=== PATIENT | female | born 1965 | race Caucasian/White ===

== ENCOUNTER 2016-05-19 13:11 | Inpatient (IN) | payer OTHER ==
[2016-05-19 14:29] VITALS: BMI 36.8
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
[2016-05-19] MEDS ORDERED: MAGNESIUM HYDROX 2400MG/30ML ORAL SUSPENSION 30 ML CUP PO PRN (16:35)
[2016-05-19] MEDS ORDERED: LOPERAMIDE HCL 2 MG CAPSULE PO PRN (16:35)
[2016-05-19] MEDS ORDERED: diazePAM 5 MG TABLET PO ONE (16:35)
[2016-05-19] MEDS ORDERED: P-EPHED 60MG/TRIPROLIDI 2.5MG TABLET PO PRN (16:35)
[2016-05-19] MEDS ORDERED: NICOTINE POLACRILEX 2 MG GUM BUC PRN (16:35)
[2016-05-19] MEDS ORDERED: MENTHOL/PHENOL 1 EACH UD MM PRN (16:35)
[2016-05-19] MEDS ORDERED: diazePAM 5 MG TABLET PO PRN (16:35)
[2016-05-19] MEDS ORDERED: IBUPROFEN 400 MG TABLET (FP) PO PRN (16:35)
[2016-05-19] MEDS ORDERED: MAG HYDROX/AL HYDROX/SIMETH 30 ML UNIT-DOSE CUP PO PRN (16:35)
[2016-05-19] MEDS ORDERED: ACETAMINOPHEN 325 MG TABLET (FP) PO PRN (16:35)
[2016-05-19] MEDS ORDERED: guaiFENesin/D-METHORPHAN HB 10 ML UNIT-DOSE CUPS PO PRN (16:35)
[2016-05-19] MEDS ORDERED: MAGNESIUM CITRATE 300 ML BOTTLE PO PRN (16:35)
[2016-05-19] MEDS ORDERED: ALBUTEROL SO4 6.7 GM HFA INHALER IH PRN (16:38)
[2016-05-19] MEDS ORDERED: chlordiazePOXIDE HCL 25 MG CAPSULE PO ONE (17:45)
[2016-05-19] MEDS ORDERED: diazePAM 5 MG TABLET PO SCH (22:00)
[2016-05-19] MEDS: THIAMINE HCL 100 MG TABLET (FP) PO SCH (22:18)
[2016-05-19] MEDS: chlordiazePOXIDE HCL 25 MG CAPSULE PO SCH (22:18)
[2016-05-19] MEDS: diphenhydrAMINE HCL 50 MG CAPSULE PO PRN (22:18)
[2016-05-20] MEDS: chlordiazePOXIDE HCL 25 MG CAPSULE PO PRN ×2 (01:49→12:55)
[2016-05-20] MEDS: chlordiazePOXIDE HCL 25 MG CAPSULE PO SCH ×4 (05:36→22:30)
[2016-05-20] MEDS ORDERED: METHADONE HCL 10 MG TABLET PO ONE (09:08)
[2016-05-20] MEDS ORDERED: METHADONE 40 MG, METHADONE 30 MG PO ONE (09:15)
--- NOTE | 2016-05-20 09:25 | CONSULT ---
[facility] Psychiatric Consult - Data Date of interview: 05/20/16 Admission source: [facility] Identifying data: This is 51 years old female with no psychiatric hospitalization history, history of Bipolar disorder, intoxicated with: Alcohol, Cannabis, Opioids, Nicotine Substance Abuse History: - Smoking Cessation. Smoking history: Current every day smoker. Have you smoked in the past 12 months: Yes. Aproximately how many cigarettes per day: 3. Cigars Per Day: 0. Hx Chewing Tobacco Use: No. Initiated information on smoking cessation: Yes. 'Breaking Loose' booklet given : 05/19/16. - Substance & Tx. History. Hx Alcohol Use: Yes. Hx Substance Use : No. Substance Use Type: Alcohol, Cocaine, Opiates, Tranquilizers. Hx Substance Use Treatment: Yes. - Substances Abused. Alcohol. Route: Oral. Frequency: Daily. Amount used: Vodka 1 pint of a 5th a day. Age of first use: 32. Date of Last Use: 05/18/16. Heroin. Route: Injection. Frequency: Daily. Amount used: $ 200. Age of first use: 18. Date of Last Use: 05/19/16. Alprazolam (Xanax). Route: Oral. Frequency: Daily. Amount used: 4 mg. Age of first use: 31. Date of Last Use: 05/18/16 Medical History: Obesity, MMTP, Arthritis, LBP, GERD , Seizure history, Syncope history Psychiatric History: Patient reports history of Bipolar disorder, reports taking prior to admission : Seroquel 50mg po bid. Ambien 10mg po qhs Physical/Sexual Abuse/Trauma History: Denies Additional Comment: Seroquel 50mg po bid. Ambien 10mg po qhs Mental Status Exam - Mental Status Exam Alert and Oriented to: Person Cognitive Function: Fair Patient Appearance: Unkempt Mood: Sad Affect: Flat Patient Behavior: Sedated Speech Pattern: Delayed Voice Loudness: Mildly Soft/Quiet Thought Process: Circumstantial Thought Disorder: Being Controlled Hallucinations: Denies Suicidal Ideation: Denies Homicidal Ideation: Denies Insight/Judgement: Fair Sleep: Difficulty falling asleep Appetite: Weight gain Muscle strength/Tone: Mild Hypotonicity Gait/Station: Shuffling Additional Comments: Seroquel 50mg po bid. Ambien 10mg po qhs Psychiatric Findings - Problem List ([place] 1, 2,3) (1) mmtp Current Visit: Yes Status: Active Comment: 80 mg verification pending (2) Alcohol dependence with uncomplicated withdrawal Current Visit: Yes Status: Acute (3) Bipolar disorder Current Visit: Yes Status: Suspected Comment: seroquel (4) Alcohol dependence Current Visit: No Status: Active (5) Cannabis dependence Current Visit: No Status: Acute (6) Nicotine dependence Current Visit: No Status: Acute (7) Opioid dependence on agonist therapy Current Visit: No Status: Acute - Initial Treatment Plan Initial Treatment Plan: Seroquel 50mg po bid. Ambien 10mg po qhs
[2016-05-20 10:08] LABS: MCH 29.3 pg (25.7-33.7); MCHC 32.7 g/dl (32.0-36.0); MEAN CELL VOLUME 89.5 fl (80-96); MEAN PLT VOLUME 12.2 fl (7.5-11.1); PLATELET COUNT 145 K/MM3 (134-434); RDW 13.8 % (11.6-15.6); WHITE BLOOD COUNT 7.7 K/mm3 (4.0-10.0)
[2016-05-20] MEDS: PRENATAL VITAMINS W/ FOLIC ACID TABLET (FP) PO SCH (10:11)
[2016-05-20] MEDS ORDERED: METHADONE HCL 10 MG TABLET ONE (10:12)
[2016-05-20] MEDS ORDERED: METHADONE HCL 40 MG DISPERSABLE TABLET ONE (10:12)
[2016-05-20] MEDS: QUEtiapine FUMARATE 50 MG TABLET PO SCH ×2 (10:13→22:32)
[2016-05-20] MEDS: NICOTINE 14 MG/24 HOURS TOPICAL PATCH TD SCH (10:16)
[2016-05-20 10:17] LABS: PH,URINE 5.5 (5.0-8.0); URINE APPEARANCE CLEAR; URINE BILIRUBIN NEGATIVE (NEGATIVE); URINE BLOOD NEGATIVE (NEGATIVE); URINE COLOR LT. YELLOW; URINE GLUCOSE (UA) NEGATIVE (NEGATIVE); URINE KETONE NEGATIVE (NEGATIVE); URINE LEUK ESTERASE NEGATIVE (NEGATIVE); URINE NITRITE NEGATIVE (NEGATIVE); URINE PROTEIN NEGATIVE (NEGATIVE); URINE UROBILINOGEN 0.2 E.U/dl E.U./dl (0.2-1.0)
[2016-05-20 10:19] LABS: ALBUMIN 3.8 g/dl (3.4-5.0); BILIRUBIN,TOTAL 0.4 mg/dL (0.2-1.0); CALCIUM 9.2 mg/dL (8.5-10.1); CREATININE 1.3 mg/dL (0.55-1.02); TOT PROT 8.2 g/dl (6.4-8.2)
--- NOTE | 2016-05-20 10:20 | EKG ---
Test Reason : Blood Pressure : / mmHG Vent. Rate : 063 BPM Atrial Rate : 063 BPM P-R Int : 146 ms QRS Dur : 084 ms QT Int : 458 ms P-R-T Axes : 047 048 034 degrees QTc Int : 468 ms NORMAL SINUS RHYTHM NORMAL ECG NO PREVIOUS ECGS AVAILABLE Confirmed by BRIAN JACQUES, JAYLYN ([id number]) on 05/20/2016 10:19:59 AM Referred By: Confirmed By:JAYLYN TORRES MD
--- NOTE | 2016-05-20 12:11 | PN ---
[facility] CIWA - CIWA Score Nausea/Vomitin Muscle Tremors: 2 Anxiety: 3 Agitation: 3 Paroxysmal Sweats: 3 Orientation: 0-Oriented Tacttile Disturbances: 2-Mild Itch/Numbness/Burn Auditory Disturbances: 0-None Visual Disturbances: 0-None Headache: 0-None Present CIWA-Ar Total Score: 15 [facility] Progress Note (SOAP) Subjective: interrupted sleep, sweats, leg cramps Objective: 05/20/16 12:07 Vital Signs Temperature 97.9 F 05/20/16 10:20 Pulse Rate 75 05/20/16 10:20 Respiratory Rate 18 05/20/16 10:20 Blood Pressure 106/62 05/20/16 10:20 O2 Sat by Pulse Oximetry (%) Laboratory Tests 05/20/16 05/20/16 05/20/16 06:00 06:00 06:00 WBC 7.7 RBC 4.48 Hgb 13.1 Hct 40.1 MCV 89.5 MCHC 32.7 RDW 13.8 Plt Count 145 MPV 12.2 H D Sodium 141 Potassium 4.2 Chloride 103 Carbon Dioxide 31 Anion Gap 7 L BUN 11 D Creatinine 1.3 H D Creat Clearance w eGFR 43.01 Random Glucose 89 Calcium 9.2 Total Bilirubin 0.4 D AST 63 H D ALT 73 D Alkaline Phosphatase 105 D Total Protein 8.2 Albumin 3.8 Urine Color Urine Appearance Urine pH Ur Specific [place] Urine Protein Urine Glucose (UA) Urine Ketones Urine Blood Urine Nitrite Urine Bilirubin Urine Urobilinogen Ur Leukocyte Esterase RPR Titer Nonreactive 05/20/16 07:50 WBC RBC Hgb Hct MCV MCHC RDW Plt Count MPV Sodium Potassium Chloride Carbon Dioxide Anion Gap BUN Creatinine Creat Clearance w eGFR Random Glucose Calcium Total Bilirubin AST ALT Alkaline Phosphatase Total Protein Albumin Urine Color Lt. yellow Urine Appearance Clear Urine pH 5.5 D Ur Specific [place] >= 1.030 Urine Protein Negative Urine Glucose (UA) Negative Urine Ketones Negative Urine Blood Negative Urine Nitrite Negative Urine Bilirubin Negative Urine Urobilinogen 0.2 e.u/dl Ur Leukocyte Esterase Negative RPR Titer pt aox3 irritable Assessment: 05/20/16 12:09 withdrawl sx',s Plan: cont. detox increase fluids flexeril 10mg tid/prn
[2016-05-20] MEDS: CYCLOBENZAPRINE HCL 10 MG TABLET (FP) PO PRN ×2 (12:55→22:32)
[2016-05-20 14:24] LABS: HIV 1 & 2 AB NEGATIVE; HIV 1 AGp24 NEGATIVE
[2016-05-20] MEDS: THIAMINE HCL 100 MG TABLET (FP) PO SCH (22:30)
[2016-05-20] MEDS: ZOLPIDEM TARTRATE 10 MG TABLET (PARK CARE ONLY) PO PRN (22:32)
[2016-05-20] MEDS: diphenhydrAMINE HCL 50 MG CAPSULE PO PRN (22:32)
[2016-05-21] MEDS: chlordiazePOXIDE HCL 25 MG CAPSULE PO PRN ×2 (02:14→12:38)
[2016-05-21] MEDS: diphenhydrAMINE HCL 50 MG CAPSULE PO PRN (02:15)
[2016-05-21] MEDS: CYCLOBENZAPRINE HCL 10 MG TABLET (FP) PO PRN ×2 (02:16→10:35)
[2016-05-21] MEDS ORDERED: METHADONE HCL 10 MG TABLET ONE (05:16)
[2016-05-21] MEDS ORDERED: METHADONE HCL 40 MG DISPERSABLE TABLET ONE (05:17)
[2016-05-21] MEDS: chlordiazePOXIDE HCL 25 MG CAPSULE PO SCH ×3 (05:49→17:26)
[2016-05-21] MEDS: METHADONE 40 MG, METHADONE 30 MG PO SCH (05:49)
[2016-05-21] MEDS ORDERED: METHADONE HCL 40 MG DISPERSABLE TABLET PO SCH (06:00)
--- NOTE | 2016-05-21 09:22 | PN ---
Psychiatric Progress Note Vital Signs: Vital Signs Period Temp Pulse Resp BP Sys/Ruelas Pulse Ox Last 24 Hr 97.0 F-98.2 F 62-75 16-20 89-106/56-63 Date of Session: 05/21/16 Chief Complaint:: Seroquel dose HPI: Patient reprots she was taking Seroquel 100mg po bid prior to admission Current Medications: Active Medications Generic Name Dose Route Start Last Admin Trade Name Freq PRN Reason Stop Dose Admin Acetaminophen 650 mg 05/19/16 16:35 Tylenol - PO Q4H PRN FEVER OR PAIN Al Hydroxide/Mg Hydroxide 30 ml 05/19/16 16:35 Mylanta Oral Suspension - PO Q6H PRN DYSPEPSIA Albuterol Sulfate 0 puff 05/19/16 16:38 Ventolin Hfa Inhaler - IH Q4H PRN SHORT OF BREATH/WHEEZING Chlordiazepoxide HCl 10 mg 05/22/16 23:00 Librium - PO 05/23/16 17:01 [id number] SHERITA Chlordiazepoxide HCl 25 mg 05/19/16 16:44 05/21/16 02:14 Librium - PO 05/22/16 16:43 25 mg Q4H PRN Administration WITHDRAWAL(CONT SUBST) Chlordiazepoxide HCl 25 mg 05/20/16 23:00 05/21/16 05:49 Librium - PO 05/21/16 17:01 25 mg [id number] SHERITA Administration Chlordiazepoxide HCl 15 mg 05/21/16 23:00 Librium - PO 05/22/16 17:01 [id number] SHERITA Cyclobenzaprine HCl 10 mg 05/20/16 12:06 05/21/16 02:16 Flexeril - PO 10 mg TID PRN Administration MUSCLE SPASMS Diphenhydramine HCl 50 mg 05/19/16 22:00 05/21/16 02:15 Benadryl - PO 50 mg HSMR1 PRN Administration INSOMNIA Eucalyptus/Menthol/Phenol/Sorbitol 1 each 05/19/16 16:35 Cepastat Lozenge - MM Q4H PRN SORE THROAT Guaifenesin 10 ml 05/19/16 16:35 Robitussin Dm - PO Q6H PRN COUGH Ibuprofen 400 mg 05/19/16 16:35 Motrin - PO Q6H PRN SEVERE PAIN Loperamide HCl 4 mg 05/19/16 16:35 Imodium - PO Q6H PRN DIARRHEA Magnesium Citrate 300 ml 05/19/16 16:35 Citroma - PO Q48H PRN CONSTIPATION Magnesium Hydroxide 30 ml 05/19/16 16:35 Milk Of Magnesia - PO DAILY PRN CONSTIPATION Methadone HCl 40 mg/ Methadone 70 mg 05/21/16 06:00 05/21/16 05:49 HCl 30 mg PO 05/27/16 05:59 70 mg DAILY@0600 SHERITA Administration Nicotine 14 mg 05/20/16 10:00 05/20/16 10:16 Nicoderm Patch - TD Not Given DAILY SHERITA Nicotine Polacrilex 2 mg 05/19/16 16:35 Nicorette Gum - BUC Q2H PRN NICOTINE REPLACEMENT RX Multivit/Folic Acid/Iron 1 tab 05/20/16 10:00 05/20/16 10:11 Vitamins (Sjr) - PO 1 tab DAILY SHERITA Administration Pseudoephedrine/Triprolidine 1 combo 05/19/16 16:35 Actifed - PO TID PRN NASAL CONGESTION Quetiapine Fumarate 100 mg 05/21/16 09:20 Seroquel - PO BID SHERITA Thiamine HCl 100 mg 05/19/16 22:00 05/20/16 22:30 Vitamin B1 - PO 100 mg HS SHERITA Administration Zolpidem Tartrate 10 mg 05/20/16 22:00 05/20/16 22:32 Ambien - PO 05/23/16 21:59 10 mg HS PRN Administration INSOMNIA Medication(s) Change(s): Seroquel 100mg po bid Mental Status Exam - Mental Status Exam Alert and Oriented to: Person Cognitive Function: Fair Patient Appearance: Unkempt Mood: Anxious Affect: Labile Patient Behavior: Cooperative Speech Pattern: Pressured Voice Loudness: Mildly Loud Thought Process: Goal Oriented Thought Disorder: Being Controlled Hallucinations: Denies Suicidal Ideation: Denies Homicidal Ideation: Denies Insight/Judgement: Fair Sleep: Difficulty falling asleep Appetite: Weight gain Muscle strength/Tone: Normal Gait/Station: Normal Additional Comments: Seroquel 100mg po bid Psychiatric Treatment Plan - Problem List (1) mmtp Current Visit: Yes Comment: 80 mg verification pending (2) Alcohol dependence with uncomplicated withdrawal Current Visit: Yes (3) Bipolar disorder Current Visit: Yes Comment: seroquel (4) Alcohol dependence Current Visit: No (5) Cannabis dependence Current Visit: No (6) Nicotine dependence Current Visit: No (7) Opioid dependence on agonist therapy Current Visit: No Initial treatment plan: Seroquel 100mg po bid
--- NOTE | 2016-05-21 09:35 | PN ---
[facility] CIWA - CIWA Score Nausea/Vomitin-No Nausea/No Vomiting Muscle Tremors: 4-Moderate,w/Arms Extend Anxiety: 3 Agitation: 4-Moderately Restless Paroxysmal Sweats: 2 Orientation: 0-Oriented Tacttile Disturbances: 0-None Auditory Disturbances: 0-None Visual Disturbances: 0-None Headache: 0-None Present CIWA-Ar Total Score: 13 [facility] Progress Note (SOAP) Subjective: anxious sweats mild shakes interrupted sleep "my blood pressure has always run low" Objective: 05/21/16 09:33 Vital Signs Temperature 97.0 F L 05/21/16 05:55 Pulse Rate 62 05/21/16 05:55 Respiratory Rate 20 05/21/16 05:55 Blood Pressure 96/60 05/21/16 05:55 O2 Sat by Pulse Oximetry (%) Laboratory Tests 05/20/16 05/20/16 05/20/16 06:00 06:00 06:00 WBC 7.7 RBC 4.48 Hgb 13.1 Hct 40.1 MCV 89.5 MCHC 32.7 RDW 13.8 Plt Count 145 MPV 12.2 H D Sodium 141 Potassium 4.2 Chloride 103 Carbon Dioxide 31 Anion Gap 7 L BUN 11 D Creatinine 1.3 H D Creat Clearance w eGFR 43.01 Random Glucose 89 Calcium 9.2 Total Bilirubin 0.4 D AST 63 H D ALT 73 D Alkaline Phosphatase 105 D Total Protein 8.2 Albumin 3.8 Urine Color Urine Appearance Urine pH Ur Specific [place] Urine Protein Urine Glucose (UA) Urine Ketones Urine Blood Urine Nitrite Urine Bilirubin Urine Urobilinogen Ur Leukocyte Esterase RPR Titer Nonreactive HIV 1&2 Antibody Screen HIV P24 Antigen 05/20/16 05/20/16 07:50 11:55 WBC RBC Hgb Hct MCV MCHC RDW Plt Count MPV Sodium Potassium Chloride Carbon Dioxide Anion Gap BUN Creatinine Creat Clearance w eGFR Random Glucose Calcium Total Bilirubin AST ALT Alkaline Phosphatase Total Protein Albumin Urine Color Lt. yellow Urine Appearance Clear Urine pH 5.5 D Ur Specific [place] >= 1.030 Urine Protein Negative Urine Glucose (UA) Negative Urine Ketones Negative Urine Blood Negative Urine Nitrite Negative Urine Bilirubin Negative Urine Urobilinogen 0.2 e.u/dl Ur Leukocyte Esterase Negative RPR Titer HIV 1&2 Antibody Screen Negative HIV P24 Antigen Negative awake/alert ambulating no acute distress encouraged to drink fluids Assessment: 05/21/16 09:34 withdrawal sx Plan: continue detox increase fluids repeat BP and monitor.
[2016-05-21] MEDS ORDERED: diazePAM 5 MG TABLET PO SCH (10:00)
[2016-05-21] MEDS: PRENATAL VITAMINS W/ FOLIC ACID TABLET (FP) PO SCH (10:10)
[2016-05-21] MEDS: QUEtiapine FUMARATE 100 MG TABLET (FP) PO SCH ×2 (10:11→22:12)
[2016-05-21] MEDS: NICOTINE 14 MG/24 HOURS TOPICAL PATCH TD SCH (10:12)
[2016-05-21] MEDS ORDERED: QUEtiapine FUMARATE 100 MG TABLET (FP) PO SCH (22:00)
[2016-05-21] MEDS: THIAMINE HCL 100 MG TABLET (FP) PO SCH (22:12)
[2016-05-21] MEDS: ZOLPIDEM TARTRATE 10 MG TABLET (PARK CARE ONLY) PO PRN (22:13)
[2016-05-21] MEDS: chlordiazePOXIDE 5 MG CAPSULE PO SCH (22:13)
[2016-05-22] MEDS: chlordiazePOXIDE HCL 25 MG CAPSULE PO PRN ×2 (02:09→12:18)
[2016-05-22] MEDS: diphenhydrAMINE HCL 50 MG CAPSULE PO PRN (02:09)
[2016-05-22] MEDS ORDERED: METHADONE HCL 10 MG TABLET ONE (04:52)
[2016-05-22] MEDS ORDERED: METHADONE HCL 40 MG DISPERSABLE TABLET ONE (04:53)
[2016-05-22] MEDS: chlordiazePOXIDE 5 MG CAPSULE PO SCH ×2 (05:58→10:08)
[2016-05-22] MEDS: METHADONE 40 MG, METHADONE 30 MG PO SCH (05:59)
[2016-05-22] MEDS: CYCLOBENZAPRINE HCL 10 MG TABLET (FP) PO PRN (06:01)
--- NOTE | 2016-05-22 09:47 | PN ---
[facility] Progress Note (SOAP) Subjective: co shakiness, poor sleep, anxiety Objective: 05/22/16 09:44 Laboratory Tests 05/20/16 05/20/16 05/20/16 06:00 06:00 06:00 WBC 7.7 RBC 4.48 Hgb 13.1 Hct 40.1 MCV 89.5 MCHC 32.7 RDW 13.8 Plt Count 145 MPV 12.2 H D Sodium 141 Potassium 4.2 Chloride 103 Carbon Dioxide 31 Anion Gap 7 L BUN 11 D Creatinine 1.3 H D Creat Clearance w eGFR 43.01 Random Glucose 89 Calcium 9.2 Total Bilirubin 0.4 D AST 63 H D ALT 73 D Alkaline Phosphatase 105 D Total Protein 8.2 Albumin 3.8 Urine Color Urine Appearance Urine pH Ur Specific [place] Urine Protein Urine Glucose (UA) Urine Ketones Urine Blood Urine Nitrite Urine Bilirubin Urine Urobilinogen Ur Leukocyte Esterase RPR Titer Nonreactive HIV 1&2 Antibody Screen HIV P24 Antigen 05/20/16 05/20/16 07:50 11:55 WBC RBC Hgb Hct MCV MCHC RDW Plt Count MPV Sodium Potassium Chloride Carbon Dioxide Anion Gap BUN Creatinine Creat Clearance w eGFR Random Glucose Calcium Total Bilirubin AST ALT Alkaline Phosphatase Total Protein Albumin Urine Color Lt. yellow Urine Appearance Clear Urine pH 5.5 D Ur Specific [place] >= 1.030 Urine Protein Negative Urine Glucose (UA) Negative Urine Ketones Negative Urine Blood Negative Urine Nitrite Negative Urine Bilirubin Negative Urine Urobilinogen 0.2 e.u/dl Ur Leukocyte Esterase Negative RPR Titer HIV 1&2 Antibody Screen Negative HIV P24 Antigen Negative Vital Signs - 24 hr 05/21/16 05/21/16 05/21/16 10:36 14:28 17:57 Temperature 97 F L 98.5 F 97.9 F Pulse Rate 80 95 H 70 Respiratory 16 20 18 Rate Blood Pressure 90/58 98/74 109/52 05/21/16 05/22/16 05/22/16 22:40 00:30 03:30 Temperature 97.5 F L Pulse Rate 81 Respiratory 19 18 18 Rate Blood Pressure 109/66 05/22/16 06:29 Temperature 97.2 F L Pulse Rate 63 Respiratory 16 Rate Blood Pressure 100/60 Assessment: 05/22/16 09:44 ongoing withdrawal Plan: continue detox protocol dc in am
[2016-05-22] MEDS: QUEtiapine FUMARATE 100 MG TABLET (FP) PO SCH (10:08)
[2016-05-22] MEDS: PRENATAL VITAMINS W/ FOLIC ACID TABLET (FP) PO SCH (10:08)
[2016-05-22] MEDS: NICOTINE 14 MG/24 HOURS TOPICAL PATCH TD SCH (10:08)
[2016-05-22 10:16] VITALS: PULSE 84
[2016-05-22 14:00] VITALS: BP 93/55; TEMP 97.7
[2016-05-22] MEDS ORDERED: chlordiazePOXIDE HCL 10 MG CAPSULE PO SCH (23:00)
[2016-05-23] MEDS ORDERED: diazePAM 5 MG TABLET PO SCH (10:00)
== END 2016-05-22 14:45 | disposition left against medical advice (07) | DRG 770 ==
LOC: YASAS 13:11 → Y6N 16:22
PROVIDERS: ADMIT Internal Medicine Addiction Medicine; ATTEND Internal Medicine Addiction Medicine
PROC: HZ2ZZZZ Detoxification Services for Substance Abuse Treatment (ICD-10-PCS; principal; 2016-05-19)
DX: F10.230 Alcohol dependence with withdrawal, uncomplicated (principal); F11.20 Opioid dependence, uncomplicated; F13.20 Sedative, hypnotic or anxiolytic dependence, uncomplicated; F12.20 Cannabis dependence, uncomplicated; F17.210 Nicotine dependence, cigarettes, uncomplicated; F31.9 Bipolar disorder, unspecified; B18.2 Chronic viral hepatitis C; E66.9 Obesity, unspecified; Z68.36 Body mass index [BMI] 36.0-36.9, adult; K21.9 Gastro-esophageal reflux disease without esophagitis; M12.9 Arthropathy, unspecified; M54.5 Low back pain; J45.909 Unspecified asthma, uncomplicated; Z86.69 Personal history of other diseases of the nervous system and sense organs; Z86.79 Personal history of other diseases of the circulatory system; Z86.2 Personal history of diseases of the blood and blood-forming organs and certain disorders involving the immune mechanism
CPT/HCPCS: 36415; 80053; 81003; 85027; 86593; 87389; 93005; 93010

== ENCOUNTER 2016-12-30 15:13 | Inpatient (IN) | payer OTHER ==
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
[2016-12-30 18:00] VITALS: BMI 35.4
[2016-12-30] MEDS ORDERED: MAGNESIUM HYDROX 2400MG/30ML ORAL SUSPENSION 30 ML CUP PO PRN (18:03)
[2016-12-30] MEDS ORDERED: MAG HYDROX/AL HYDROX/SIMETH 30 ML UNIT-DOSE CUP PO PRN (18:03)
[2016-12-30] MEDS ORDERED: MENTHOL/PHENOL 1 EACH UD MM PRN (18:03)
[2016-12-30] MEDS ORDERED: guaiFENesin/D-METHORPHAN HB 10 ML UNIT-DOSE CUPS PO PRN (18:03)
[2016-12-30] MEDS ORDERED: LOPERAMIDE HCL 2 MG CAPSULE PO PRN (18:03)
[2016-12-30] MEDS ORDERED: P-EPHED 60MG/TRIPROLIDI 2.5MG TABLET PO PRN (18:03)
[2016-12-30] MEDS ORDERED: diphenhydrAMINE HCL 50 MG CAPSULE PO PRN (18:03)
[2016-12-30] MEDS ORDERED: ACETAMINOPHEN 325 MG TABLET (FP) PO PRN (18:03)
[2016-12-30] MEDS ORDERED: MAGNESIUM CITRATE 300 ML BOTTLE PO PRN (18:03)
[2016-12-30] MEDS ORDERED: chlordiazePOXIDE HCL 25 MG CAPSULE PO ONE (18:03)
[2016-12-30] MEDS ORDERED: IBUPROFEN 400 MG TABLET (FP) PO PRN (18:03)
[2016-12-30] MEDS ORDERED: ALBUTEROL SO4 6.7 GM HFA INHALER IH PRN (18:05)
[2016-12-30] MEDS: THIAMINE HCL 100 MG TABLET (FP) PO SCH (22:06)
[2016-12-30] MEDS: chlordiazePOXIDE HCL 25 MG CAPSULE PO SCH (22:06)
[2016-12-30 22:10] LABS: URINE APPEARANCE SLCLOUDY; URINE BILIRUBIN NEGATIVE (NEGATIVE); URINE BLOOD NEGATIVE (NEGATIVE); URINE COLOR AMBER; URINE GLUCOSE (UA) NEGATIVE (NEGATIVE); URINE KETONE NEGATIVE (NEGATIVE); URINE LEUK ESTERASE TRACE (NEGATIVE); URINE NITRITE NEGATIVE (NEGATIVE)
[2016-12-30 22:15] LABS: URINE PROTEIN 1+ (NEGATIVE)
[2016-12-30 22:18] LABS: URINE HYALINE CAST 12 /lpf; URINE MUCUS MANY; URINE WBC 4 /hpf (3-5)
[2016-12-31] MEDS: chlordiazePOXIDE HCL 25 MG CAPSULE PO SCH ×4 (06:39→22:03)
--- NOTE | 2016-12-31 09:05 | CONSULT ---
[facility] Psychiatric Consult - Data Date of interview: 12/31/16 Admission source: [facility] Identifying data: This is 51 years old obese female with Bipolar disorder history, no psychiatric hospitalization history intoxicated with: Alcohol, Cannabis, Opioids and Nicotine Substance Abuse History: - Smoking Cessation. Smoking history: Former smoker. Have you smoked in the past 12 months: No. Aproximately how many cigarettes per day: 0. Cigars Per Day: 0. Hx Chewing Tobacco Use: No. Initiated information on smoking cessation: No. - Substance & Tx. History. Hx Alcohol Use: Yes. Hx Substance Use: Yes. Substance Use Type: Alcohol, Cocaine, Marijuana, Tranquilizers. Hx Substance Use Treatment: Yes (05/19-05/22/16 [facility]). - Substances Abused. Alcohol. Route: Oral. Frequency: Daily. Amount used: fifth volka. Age of first use: 25. Date of Last Use: 12/29/16. * * Alprazolam (Xanax). Route: Oral. Frequency: Daily. Amount used: 8 mg. Age of first use: 29. Date of Last Use: 12/29/16 Medical History: Asthma, Obesity, HepC+, Seizure history, Syncope history, MMTP 80mg per day Psychiatric History: Patient reports history of Bipolar Disorder, PTSD, reports taking prior to admission: Seroquel 100mg po bid. Ambien 10mg po qhs Physical/Sexual Abuse/Trauma History: Denies Additional Comment: Seroquel 100mg po bid. Ambien 10mg po qhs Mental Status Exam - Mental Status Exam Alert and Oriented to: Person Cognitive Function: Fair Patient Appearance: Unkempt Mood: Sad Affect: Flat Patient Behavior: Cooperative Speech Pattern: Appropriate Voice Loudness: Mildly Soft/Quiet Thought Process: Circumstantial Thought Disorder: Being Controlled Hallucinations: Denies Suicidal Ideation: Denies Homicidal Ideation: Denies Insight/Judgement: Fair Sleep: Difficulty falling asleep Appetite: Weight gain Muscle strength/Tone: Mild Hypotonicity Gait/Station: Shuffling Additional Comments: Seroquel 100mg po bid. Ambien 10mg po qhs Psychiatric Findings - Problem List ([place] 1, 2,3) (1) Alcohol dependence with uncomplicated withdrawal Current Visit: Yes Status: Acute (2) Cannabis dependence, uncomplicated Current Visit: Yes Status: Chronic (3) Cocaine dependence, uncomplicated Current Visit: Yes Status: Chronic (4) Methadone maintenance therapy patient Current Visit: Yes Status: Chronic Comment: 80 mg verification pending (5) Alcohol dependence Current Visit: No Status: Active (6) mmtp Current Visit: No Status: Active Comment: 80 mg verification pending (7) Cannabis dependence Current Visit: No Status: Acute (8) Nicotine dependence Current Visit: No Status: Acute (9) Bipolar disorder Current Visit: No Status: Suspected Comment: seroquel - Initial Treatment Plan Initial Treatment Plan: Seroquel 100mg po bid. Ambien 10mg po qhs
[2016-12-31] MEDS: METHADONE HCL 40 MG DISPERSABLE TABLET PO SCH (09:08)
[2016-12-31] MEDS ORDERED: ONDANSETRON *ODT* 4 MG TABLET SL PRN (09:13)
[2016-12-31 10:08] LABS: MCH 29.2 pg (25.7-33.7); MCHC 32.7 g/dl (32.0-36.0); MEAN CELL VOLUME 89.4 fl (80-96); MEAN PLT VOLUME 10.7 fl (7.5-11.1); PLATELET COUNT 141 K/MM3 (134-434); RDW 14.3 % (11.6-15.6); WHITE BLOOD COUNT 7.4 K/mm3 (4.0-10.0)
[2016-12-31] MEDS: PRENATAL VITAMINS W/ FOLIC ACID TABLET (FP) PO SCH (10:26)
[2016-12-31] MEDS: QUEtiapine FUMARATE 100 MG TABLET (FP) PO SCH ×2 (10:26→22:03)
[2016-12-31] MEDS: CYCLOBENZAPRINE HCL 10 MG TABLET (FP) PO PRN ×2 (10:26→22:03)
[2016-12-31 10:29] LABS: ALBUMIN 3.3 g/dl (3.4-5.0); ALK PHOS 100 U/L (45-117); ANION GAP 7 (8-16); BILIRUBIN,TOTAL 0.5 mg/dL (0.2-1.0); CALCIUM 8.7 mg/dL (8.5-10.1); CO2 31 mmol/L (21-32); CREATININE 1.3 mg/dL (0.55-1.02); SGOT/AST 36 U/L (15-37); SGPT/ALT 49 U/L (12-78); TOT PROT 7.3 g/dl (6.4-8.2)
--- NOTE | 2016-12-31 11:14 | PN ---
[facility] CIWA - CIWA Score Nausea/Vomitin-No Nausea/No Vomiting Muscle Tremors: 4-Moderate,w/Arms Extend Anxiety: 3 Agitation: 3 Paroxysmal Sweats: 3 Orientation: 0-Oriented Tacttile Disturbances: 0-None Auditory Disturbances: 0-None Visual Disturbances: 0-None Headache: 0-None Present CIWA-Ar Total Score: 13 S Progress Note (SOAP) Subjective: chronic knee pain nausea sweats agitation Objective: 12/31/16 11:14 Vital Signs Temperature 97.9 F 12/31/16 09:57 Pulse Rate 71 12/31/16 09:57 Respiratory Rate 18 12/31/16 09:57 Blood Pressure 100/46 12/31/16 09:57 O2 Sat by Pulse Oximetry (%) Laboratory Tests 12/30/16 12/31/16 12/31/16 21:45 07:00 07:00 WBC 7.4 RBC 4.21 Hgb 12.3 Hct 37.7 MCV 89.4 MCH 29.2 MCHC 32.7 RDW 14.3 Plt Count 141 MPV 10.7 D Sodium 140 Potassium 4.1 Chloride 102 Carbon Dioxide 31 Anion Gap 7 L BUN 16 D Creatinine 1.3 H Creat Clearance w eGFR 43.01 Calcium 8.7 Total Bilirubin 0.5 D AST 36 D ALT 49 D Alkaline Phosphatase 100 Total Protein 7.3 Albumin 3.3 L Urine Color [place] Urine Appearance Slcloudy Urine pH 5.0 Urine Protein 1+ H Urine Glucose (UA) Negative Urine Ketones Negative Urine Blood Negative Urine Nitrite Negative Urine Bilirubin Negative Urine Urobilinogen 2.0 H Ur Leukocyte Esterase Trace Urine RBC None Urine WBC 4 Ur Epithelial Cells Rare Hyaline Casts 12 Urine Mucus Many awake/alert ambulating no acute distress Assessment: 12/31/16 11:24 withdrawal sx Plan: continue detox increase fluids provide pt with pitcher provide pt with cane motrin 800mg tid/prn analgesic balm
--- NOTE | 2016-12-31 11:17 | EKG ---
Test Reason : Blood Pressure : / mmHG Vent. Rate : 066 BPM Atrial Rate : 066 BPM P-R Int : 166 ms QRS Dur : 078 ms QT Int : 438 ms P-R-T Axes : 052 058 044 degrees QTc Int : 459 ms NORMAL SINUS RHYTHM NORMAL ECG WHEN COMPARED WITH ECG OF 19-MAY-2016 19:08, NO SIGNIFICANT CHANGE WAS FOUND Confirmed by ARLYN SMITH MD ([id number]) on 12/31/2016 11:17:21 AM Referred By: Confirmed By:ARLYN SMITH MD
[2016-12-31] MEDS: chlordiazePOXIDE HCL 25 MG CAPSULE PO PRN ×2 (13:14→19:35)
[2016-12-31 17:57] LABS: GLUCOSE,RANDOM 126 mg/dL (74-106)
[2016-12-31] MEDS: IBUPROFEN 400 MG TABLET (FP) PO PRN (19:36)
[2016-12-31] MEDS: THIAMINE HCL 100 MG TABLET (FP) PO SCH (22:03)
[2016-12-31] MEDS: ZOLPIDEM TARTRATE 10 MG TABLET (PARK CARE ONLY) PO PRN (22:03)
[2017-01-01] MEDS: METHADONE HCL 40 MG DISPERSABLE TABLET PO SCH (05:23)
[2017-01-01] MEDS: chlordiazePOXIDE HCL 25 MG CAPSULE PO SCH ×3 (05:23→17:13)
[2017-01-01] MEDS: CYCLOBENZAPRINE HCL 10 MG TABLET (FP) PO PRN ×3 (05:26→22:10)
[2017-01-01] MEDS: PRENATAL VITAMINS W/ FOLIC ACID TABLET (FP) PO SCH (10:29)
[2017-01-01] MEDS: QUEtiapine FUMARATE 100 MG TABLET (FP) PO SCH ×2 (10:29→22:10)
[2017-01-01] MEDS: IBUPROFEN 400 MG TABLET (FP) PO PRN (10:30)
--- NOTE | 2017-01-01 11:45 | PN ---
[facility] CIWA - CIWA Score Nausea/Vomitin-No Nausea/No Vomiting Muscle Tremors: 3 Anxiety: 3 Agitation: 4-Moderately Restless Paroxysmal Sweats: 3 Orientation: 0-Oriented Tacttile Disturbances: 0-None Auditory Disturbances: 0-None Visual Disturbances: 0-None Headache: 0-None Present CIWA-Ar Total Score: 13 S Progress Note (SOAP) Subjective: back pain sweats interrupted sleep agitation Objective: 01/01/17 11:46 Vital Signs Temperature 96.3 F L 01/01/17 10:36 Pulse Rate 64 01/01/17 10:36 Respiratory Rate 18 01/01/17 10:36 Blood Pressure 104/61 01/01/17 10:36 O2 Sat by Pulse Oximetry (%) Laboratory Tests 12/30/16 12/31/16 12/31/16 21:45 07:00 07:00 WBC 7.4 RBC 4.21 Hgb 12.3 Hct 37.7 MCV 89.4 MCH 29.2 MCHC 32.7 RDW 14.3 Plt Count 141 MPV 10.7 D Sodium 140 Potassium 4.1 Chloride 102 Carbon Dioxide 31 Anion Gap 7 L BUN 16 D Creatinine 1.3 H Creat Clearance w eGFR 43.01 Random Glucose 126 H D Calcium 8.7 Total Bilirubin 0.5 D AST 36 D ALT 49 D Alkaline Phosphatase 100 Total Protein 7.3 Albumin 3.3 L Urine Color Afia Urine Appearance Slcloudy Urine pH 5.0 Ur Specific [place] >= 1.030 H Urine Protein 1+ H Urine Glucose (UA) Negative Urine Ketones Negative Urine Blood Negative Urine Nitrite Negative Urine Bilirubin Negative Urine Urobilinogen 2.0 H Ur Leukocyte Esterase Trace Urine RBC None Urine WBC 4 Ur Epithelial Cells Rare Hyaline Casts 12 Urine Mucus Many RPR Titer 12/31/16 07:00 WBC RBC Hgb Hct MCV MCH MCHC RDW Plt Count MPV Sodium Potassium Chloride Carbon Dioxide Anion Gap BUN Creatinine Creat Clearance w eGFR Random Glucose Calcium Total Bilirubin AST ALT Alkaline Phosphatase Total Protein Albumin Urine Color Urine Appearance Urine pH Ur Specific [place] Urine Protein Urine Glucose (UA) Urine Ketones Urine Blood Urine Nitrite Urine Bilirubin Urine Urobilinogen Ur Leukocyte Esterase Urine RBC Urine WBC Ur Epithelial Cells Hyaline Casts Urine Mucus RPR Titer Nonreactive awake/alert ambulating no acute distress Assessment: 01/01/17 11:46 withdrawal sx Plan: continue detox increase fluids lidocaine patch daily
[2017-01-01] MEDS: LIDOCAINE 5% TOPICAL PATCH TP SCH (12:59)
[2017-01-01] MEDS: LIDOCAINE PATCH REMOVAL MC SCH (22:09)
[2017-01-01] MEDS: chlordiazePOXIDE 5 MG CAPSULE PO SCH (22:10)
[2017-01-01] MEDS: THIAMINE HCL 100 MG TABLET (FP) PO SCH (22:10)
[2017-01-02] MEDS: chlordiazePOXIDE 5 MG CAPSULE PO SCH ×3 (05:49→17:30)
[2017-01-02] MEDS: METHADONE HCL 40 MG DISPERSABLE TABLET PO SCH (05:49)
[2017-01-02] MEDS: CYCLOBENZAPRINE HCL 10 MG TABLET (FP) PO PRN ×2 (05:51→22:15)
[2017-01-02] MEDS: QUEtiapine FUMARATE 100 MG TABLET (FP) PO SCH ×2 (11:12→22:15)
[2017-01-02] MEDS: PRENATAL VITAMINS W/ FOLIC ACID TABLET (FP) PO SCH (11:12)
[2017-01-02] MEDS: LIDOCAINE 5% TOPICAL PATCH TP SCH (11:13)
[2017-01-02] MEDS: chlordiazePOXIDE HCL 25 MG CAPSULE PO PRN (14:13)
[2017-01-02] MEDS: hydrOXYzine PAMOATE 50 MG CAPSULE (FP) PO PRN (15:25)
--- NOTE | 2017-01-02 15:27 | PN ---
S Progress Note (SOAP) Subjective: ALERT,IRRITABLE,INTERRUPTED SLEEP Objective: 01/02/17 15:26 Vital Signs Temperature 97.7 F 01/02/17 14:57 Pulse Rate 77 01/02/17 14:57 Respiratory Rate 18 01/02/17 14:57 Blood Pressure 102/87 01/02/17 14:57 O2 Sat by Pulse Oximetry (%) Assessment: 01/02/17 15:26 WITHDRAWAL SYMPTOM Plan: CONTINUE DETOX,DISCHARGE IN AM
[2017-01-02] MEDS: ZOLPIDEM TARTRATE 10 MG TABLET (PARK CARE ONLY) PO PRN (22:15)
[2017-01-02] MEDS: LIDOCAINE PATCH REMOVAL MC SCH (22:15)
[2017-01-02] MEDS: chlordiazePOXIDE HCL 10 MG CAPSULE PO SCH (22:15)
[2017-01-02] MEDS: THIAMINE HCL 100 MG TABLET (FP) PO SCH (22:15)
[2017-01-03] MEDS: chlordiazePOXIDE HCL 10 MG CAPSULE PO SCH ×2 (05:17→10:31)
[2017-01-03] MEDS: METHADONE HCL 40 MG DISPERSABLE TABLET PO SCH (05:17)
[2017-01-03] MEDS: CYCLOBENZAPRINE HCL 10 MG TABLET (FP) PO PRN (05:19)
[2017-01-03] MEDS: hydrOXYzine PAMOATE 50 MG CAPSULE (FP) PO PRN ×2 (05:23→10:59)
[2017-01-03] MEDS: IBUPROFEN 400 MG TABLET (FP) PO PRN (07:19)
--- NOTE | 2017-01-03 09:04 | DS ---
[facility] Detox Discharge Summary Admission Date: 12/30/16 Discharge Date: 01/03/17 - History Present History: Alcohol Dependence, Cannabis Dependence, Cocaine Dependence, Opioid Dependence, MMTP Pertinent Past History: HEPATITIS C CHRONIC LOW BACK PAIN METHADONE MAINTENANCE THERAPY PATIENT - Physical Exam Results Vital Signs: Vital Signs Temperature 96.4 F L 01/03/17 06:33 Pulse Rate 66 01/03/17 06:33 Respiratory Rate 18 01/03/17 06:33 Blood Pressure 104/63 01/03/17 06:33 O2 Sat by Pulse Oximetry (%) Pertinent Admission Physical Exam Findings: WITHDRAWAL FINDING - Treatment Hospital Course: Detox Protocol Followed, Detoxed Safely, Responded well, Discharged Condition Good Patient has Accepted a Rehab Referral to: [facility] - Medication Discharge Medications: Ambulatory Orders Albuterol Sulfate Inhaler - [Ventolin Hfa Inhaler -] 1 - 2 inh PO Q4H 12/30/16 Alprazolam [Xanax] 2 mg PO BID 12/30/16 Dextroamphetamine/Amphetamine [Adderall 10 mg Tablet] 10 mg PO TID 12/30/16 Quetiapine Fumarate [Seroquel -] 25 mg PO BID 12/30/16 Quetiapine Fumarate [Seroquel] 100 mg PO BID #60 tablet 12/31/16 - Diagnosis (1) Alcohol dependence with uncomplicated withdrawal Current Visit: Yes Status: Chronic (2) Cannabis dependence, uncomplicated Current Visit: Yes Status: Chronic (3) Chronic back pain Current Visit: Yes Status: Chronic (4) Cocaine dependence, uncomplicated Current Visit: Yes Status: Chronic (5) Methadone maintenance therapy patient Current Visit: Yes Status: Chronic (6) Hepatitis C Current Visit: Yes Status: Resolved Qualifiers: Viral hepatitis chronicity: unspecified Hepatic coma status: without hepatic coma Qualified Code(s): B19.20 - Unspecified viral hepatitis C without hepatic coma (7) Syncope Current Visit: No Status: Active (8) seizure alcohol related Current Visit: No Status: Active (9) Arthritis Current Visit: No Status: Acute (10) Nicotine dependence Current Visit: No Status: Acute (11) Asthma Current Visit: No Status: Chronic (12) GERD Current Visit: No Status: Chronic (13) Bipolar disorder Current Visit: No Status: Suspected - AMA Did Patient Leave Against Medical Advice: No
[2017-01-03] MEDS: PRENATAL VITAMINS W/ FOLIC ACID TABLET (FP) PO SCH (10:29)
[2017-01-03] MEDS: LIDOCAINE 5% TOPICAL PATCH TP SCH (10:31)
[2017-01-03] MEDS: QUEtiapine FUMARATE 100 MG TABLET (FP) PO SCH (10:31)
[2017-01-03 10:33] VITALS: BP 102/69; PULSE 70; TEMP 97.9
== END 2017-01-03 11:30 | disposition home or self-care (01) | DRG 773 ==
LOC: YASAS 15:13 → Y6N 19:34
PROVIDERS: ADMIT Internal Medicine; ATTEND Internal Medicine
PROC: HZ2ZZZZ Detoxification Services for Substance Abuse Treatment (ICD-10-PCS; principal; 2016-12-30)
DX: F10.230 Alcohol dependence with withdrawal, uncomplicated (principal); F11.20 Opioid dependence, uncomplicated; F14.20 Cocaine dependence, uncomplicated; F12.20 Cannabis dependence, uncomplicated; F17.210 Nicotine dependence, cigarettes, uncomplicated; F31.9 Bipolar disorder, unspecified; J45.909 Unspecified asthma, uncomplicated; M54.5 Low back pain; G89.29 Other chronic pain; B19.20 Unspecified viral hepatitis C without hepatic coma; B35.3 Tinea pedis; M19.90 Unspecified osteoarthritis, unspecified site; K21.9 Gastro-esophageal reflux disease without esophagitis; E66.9 Obesity, unspecified; Z68.35 Body mass index [BMI] 35.0-35.9, adult; Z86.69 Personal history of other diseases of the nervous system and sense organs; Z86.79 Personal history of other diseases of the circulatory system
CPT/HCPCS: 36415; 80053; 81003; 81015; 85027; 86593; 93005; 93010

== ENCOUNTER 2020-09-10 12:52 | Emergency (ER) | payer OTHER ==
[2020-09-10 13:00] VITALS: BP 107/65; PULSE 75; TEMP 98.6; BMI 34.9
== END 2020-09-10 13:50 | disposition home or self-care (01) ==
LOC: JERFT 12:52
DX: Z48.00 Encounter for change or removal of nonsurgical wound dressing (principal)
CPT/HCPCS: 99281-25

== ENCOUNTER 2022-01-12 20:33 | Emergency (ER) | payer OTHER ==
[2022-01-12 20:37] VITALS: BP 136/76; PULSE 77; RESP 20; TEMP 98.4; BMI 34.3
[2022-01-12] MEDS ORDERED: SODIUM CHLORIDE 0.9% 500 ML INFUS.BAG IV ONE (21:10)
[2022-01-12] MEDS ORDERED: ACETAMINOPHEN 1000 MG/100 ML BAG IVPB ONE (21:10)
[2022-01-12] MEDS ORDERED: MAG HYDROX/AL HYDROX/SIMETH 30 ML UNIT-DOSE CUP PO ONE (21:11)
[2022-01-12] MEDS ORDERED: FAMOTIDINE 20 MG/50 ML IVPB 20 MG/50 ML MG IVPB ONE ×2 (21:11→21:31)
[2022-01-12] MEDS ORDERED: ONDANSETRON 4 MG/2 ML VIAL IVPUSH ONE (21:12)
[2022-01-12] MEDS ORDERED: ACETAMINOPHEN INJECTION 100 ML IVPB ONE (21:30)
[2022-01-12] MEDS ORDERED: ONDANSETRON 4 MG/2 ML VIAL ONE (21:31)
[2022-01-12] MEDS ORDERED: MAG HYDROX/AL HYDROX/SIMETH 30 ML UNIT-DOSE CUP ONE (21:31)
[2022-01-12 22:20] LABS: BASO % 0.3 % (0-2.0); EOS % 0.1 % (0-4.5); HEMATOCRIT 40.1 % (32.4-45.2); HEMOGLOBIN 13.5 GM/dL (10.7-15.3); LYMPH % 16.7 % (8-40); MCH 29.7 pg (25.7-33.7); MCHC 33.6 g/dl (32.0-36.0); MEAN CELL VOLUME 88.4 fl (80-96); MEAN PLT VOLUME 10.3 fl (7.5-11.1); MONO % 10.4 % (3.8-10.2); NEUT % 72.5 % (42.8-82.8); PLATELET COUNT 101 10^3/uL (134-434); RBC 4.53 M/mm3 (3.60-5.2); RDW 13.6 % (11.6-15.6); WHITE BLOOD COUNT 6.4 K/mm3 (4.0-10.0)
[2022-01-12 22:41] LABS: CALCIUM 9.1 mg/dL (8.5-10.1)
[2022-01-12 22:42] LABS: ALBUMIN 3.6 g/dl (3.4-5.0); BLOOD UREA NITROGEN 11.3 mg/dL (7-18)
[2022-01-12 22:46] LABS: BILIRUBIN,TOTAL 0.7 mg/dL (0.2-1)
[2022-01-12 22:47] LABS: TOT PROT 7.8 g/dl (6.4-8.2)
== END 2022-01-13 00:37 | disposition home or self-care (01) ==
LOC: JER 20:33
PROC: 3E0333Z Introduction of Anti-inflammatory into Peripheral Vein, Percutaneous Approach (ICD-10-PCS; principal; 2022-01-12)
PROC: 3E033GC Introduction of Other Therapeutic Substance into Peripheral Vein, Percutaneous Approach (ICD-10-PCS; 2022-01-12)
PROC: 3E033GC Introduction of Other Therapeutic Substance into Peripheral Vein, Percutaneous Approach (ICD-10-PCS; 2022-01-12)
DX: R11.2 Nausea with vomiting, unspecified (principal)
CPT/HCPCS: 0241U-QW; 36415; 76705-TC; 80053; 83605; 83690; 84484; 85025; 93005; 93010; 99285-25

== ENCOUNTER 2023-11-19 14:04 | Emergency (ER) | payer OTHER ==
[2023-11-19] MEDS ORDERED: ACETAMINOPHEN INJECTION 100 ML IVPB ONE (14:53)
[2023-11-19] MEDS ORDERED: ONDANSETRON 4 MG/2 ML VIAL ONE (14:53)
[2023-11-19 15:28] LABS: BASO % 0.8 % (0-2.0); EOS % 1.5 % (0-4.5); HEMATOCRIT 37.3 % (32.4-45.2); HEMOGLOBIN 12.5 GM/dL (10.7-15.3); LYMPH % 29.7 % (8-40); MCH 30.5 pg (25.7-33.7); MCHC 33.5 g/dl (32.0-36.0); MEAN CELL VOLUME 91.1 fl (80-96); MEAN PLT VOLUME 10.6 fl (7.5-11.1); MONO % 5.3 % (3.8-10.2); NEUT % 62.7 % (42.8-82.8); PLATELET COUNT 142 10^3/uL (134-434); RDW 14.8 % (11.6-15.6); WHITE BLOOD COUNT 11.6 K/mm3 (4.0-10.0)
[2023-11-19] MEDS: SODIUM CHLORIDE 1,000 ML IV STA (15:28)
[2023-11-19] MEDS: ACETAMINOPHEN 1000 MG/100 ML BAG IVPB ONE (15:28)
[2023-11-19] MEDS: ONDANSETRON 4 MG/2 ML VIAL IVPUSH ONE (15:29)
[2023-11-19 15:36] VITALS: BP 157/98; RESP 78; TEMP 98.5; BMI 29.5
[2023-11-19 15:47] LABS: POTASSIUM 3.7 mmol/L (3.5-5.1)
[2023-11-19 15:49] LABS: CALCIUM 9.2 mg/dL (8.5-10.1)
[2023-11-19 15:50] LABS: ALBUMIN 3.8 g/dl (3.4-5.0)
[2023-11-19 15:53] LABS: CREATININE 1.2 mg/dL (0.55-1.3)
[2023-11-19 15:54] LABS: BILIRUBIN,TOTAL 0.6 mg/dL (0.2-1); TOT PROT 7.5 g/dl (6.4-8.2)
== END 2023-11-19 20:00 | disposition home or self-care (01) ==
LOC: JER 14:04
PROC: 3E033NZ Introduction of Analgesics, Hypnotics, Sedatives into Peripheral Vein, Percutaneous Approach (ICD-10-PCS; principal; 2023-11-19)
PROC: 3E033GC Introduction of Other Therapeutic Substance into Peripheral Vein, Percutaneous Approach (ICD-10-PCS; 2023-11-19)
PROC: 3E0337Z Introduction of Electrolytic and Water Balance Substance into Peripheral Vein, Percutaneous Approach (ICD-10-PCS; 2023-11-19)
DX: T40.2X1A Poisoning by other opioids, accidental (unintentional), initial encounter (principal); R40.0 Somnolence; F11.23 Opioid dependence with withdrawal; R56.9 Unspecified convulsions
CPT/HCPCS: 36415; 80053; 84484; 85025; 93005; 93010; 99284-25; J0131